=== PATIENT | male | born 1960 | race Caucasian/White ===

== ENCOUNTER 2021-06-30 00:03 | Day surgery (SDC) | payer BC, SELFPAY ==
[2021-06-24 12:44] VITALS: BMI 33.0
[2021-06-30 06:22] VITALS: BP 150/82; PULSE 60; RESP 18; TEMP 36.2; O2SAT 99
[2021-06-30] MEDS: LACTATED RINGERS 1,000 ML 150 ML IV CONT (06:32)
--- NOTE | 2021-06-30 07:19 | PM.HPGS ---
History of Present Illness History of Present Illness Consent: Risks, benefits, and alternatives have been discussed and questions answered. Patient agrees to proceed with procedure. Chief complaint: neoplasm screening Narrative: Cade Truong is a 61 year old male here for screening colonoscopy, last one 10 years ago. Review of Systems Constitutional: Constitutional: Denies headache(s) and Denies weakness Eyes: Eyes: Denies blurry vision ENT: Reports Normal hearing present, Denies headache(s) and Denies neck pain Cardiovascular: Cardiovascular: Denies chest pain and Denies dyspnea Respiratory: Respiratory: Denies dyspnea Gastrointestinal: Gastrointestinal: Reports no additional gastrointestinal complaints Genitourinary: Genitourinary: Denies dysuria Musculoskeletal: Musculoskeletal: Denies neck pain Integumentary/Breasts: Skin/Breast: Denies dry skin Neurologic: Reports Normal hearing present, Denies headache(s) and Denies weakness Psychiatric: Psychiatric: Denies anxiety Endocrine: Endocrine: Denies change in body appearance Hematologic/Lymphatic: Hematologic/Lymphatic: Denies easy bleeding Allergic/Immunologic: Allergic/Immunologic: Denies urticaria PMFSH Past Medical History Medical History (Updated 06/30/21 @ 07:20 by Donnie Hernandez MD) BMI 31.0-31.9,adult BMI 34.0-34.9,adult Colon cancer screening Surgical History Surgical History H/O shoulder surgery Family History Family History Mother Hypertension Cerebrovascular accident Family history of malignant neoplasm Family history of diabetes mellitus in first degree relative Family history of coronary artery disease Father Malignant neoplasm of prostate Social History Social History Smoking status: Current some day smoker Tobacco type: cigars Additional smoking assessment comments: cigar when golfing Alcohol intake: current Alcohol use details: once per month Substance use: never Substance use type: does not use Living arrangements: with family 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 Gender identity (if verbalized by the patient): Male Spiritual care concerns: No Meds Home Medications and Allergies Home Medications Medication Instructions Recorded Confirmed Type tadalafil 20 mg tablet 20 mg PO DAILY PRN #21 tablet 04/16/21 06/24/21 Rx aspirin [Adult Aspirin] 81 mg PO DAILY 06/24/21 06/30/21 History atorvastatin 80 mg PO DAILY 06/24/21 06/30/21 History pramipexole 0.25 mg PO TID 06/24/21 06/30/21 History Allergies Allergy/AdvReac Type Severity Reaction Status Date / Time No Known Drug Allergies Allergy Mild none Verified 06/30/21 06:21 Vital Signs Vital Signs - 24 hr 06/30/21 06:22 Temperature 97.1 F L Pulse Rate 60 Respiratory Rate 18 Blood Pressure 150/82 H Pulse Oximetry 99 Exam Const: General: comfortable and no acute distress HENMT: General nose exam: Normal nares present Eyes: General: appearance normal, both eyes and all related structures Neck: Neck: no JVD Resp: Auscultation: clear to auscultation bilaterally Cardio: Rate: regular rate Rhythm: regular rhythm GI: Inspection: non-distended GI Palp: Yes Soft to palpation Skin: General skin exam: normal color Neuro: General: gait normal Speech: normal speech Extrem: General: normal to inspection Psych: Mental Status: mental status grossly normal Assessment and Plan Assessment and plan (1) Colon cancer screening: Code(s): Z12.11 - Encounter for screening for malignant neoplasm of colon Status: Acute Assessment and Plan: colonoscopy
--- NOTE | 2021-06-30 07:24 | WPDANESEPPF ---
Anes - Initial Pre Proc Eval Procedure: Operation Date: 06/30/21 07:30 Proposed Procedures p Screening Colonoscopy - Donnie Hernandez MD Date/Time: 06/30/21 07:24 Surgeon: Donnie Hernandez MD Pre Op Diagnosis: neoplasm screening Patient Data Age: 61 Gender: M Height: 1.78 m Weight: 99.8 kg Last Vital Signs Temp 97.1 F L 06/30/21 06:22 Pulse 60 06/30/21 06:22 Resp 18 06/30/21 06:22 BP 150/82 H 06/30/21 06:22 Pulse Ox 99 06/30/21 06:22 Allergies Allergy/AdvReac Type Severity Reaction Status Date / Time No Known Drug Allergies Allergy Mild none Verified 06/30/21 06:21 Home Medications Medication Instructions Recorded Confirmed Type tadalafil 20 mg tablet 20 mg PO DAILY PRN #21 tablet 04/16/21 06/24/21 Rx aspirin [Adult Aspirin] 81 mg PO DAILY 06/24/21 06/30/21 History atorvastatin 80 mg PO DAILY 06/24/21 06/30/21 History pramipexole 0.25 mg PO TID 06/24/21 06/30/21 History Patient hx anesthesia problems: none Family hx anesthesia problems: none Results Review: All pre-operative results and documents have been reviewed as part of the pre-operative evaluation. [facility] Past Medical History Medical History (Updated 06/30/21 @ 07:20 by Donnie Hernandez MD) BMI 31.0-31.9,adult BMI 34.0-34.9,adult Colon cancer screening Surgical History Surgical History H/O shoulder surgery Family History Family History Mother Hypertension Cerebrovascular accident Family history of malignant neoplasm Family history of diabetes mellitus in first degree relative Family history of coronary artery disease Father Malignant neoplasm of prostate Social History Social History Smoking status: Current some day smoker Tobacco type: cigars Additional smoking assessment comments: cigar when golfing Alcohol intake: current Alcohol use details: once per month Substance use: never Substance use type: does not use Living arrangements: with family 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 Gender identity (if verbalized by the patient): Male Spiritual care concerns: No Anes - Eval Final PreProcedure Day of Procedure 06/30/21 07:24 Patient weight: obese Heart: regular rate and rhythm Lungs: clear to auscultation Airway: Mallampati scale (states difficult intubation; brought letter from [facility]) class II Neurological: alert and oriented Last oral intake: >/= 8 hours ASA classification: III Emergent: no Anesthetic plan: proceed Anesthesia type and monitoring: general GIVS and standard monitoring Results Review: All pre-operative results and documents have been reviewed as part of the pre-operative evaluation. Informed Consent: The patient's anesthetic plan and its attendant risks and benefits were discussed with the patient/family/POA. Questions were solicited and answers provided to the satisfaction of the patient/family/POA.
[2021-06-30 07:39] VITALS: BP 123/77; PULSE 60; RESP 18; O2SAT 97
[2021-06-30 07:49] VITALS: BP 119/80; PULSE 56; RESP 20; O2SAT 99
[2021-06-30 07:59] VITALS: BP 129/86; PULSE 58; RESP 20; O2SAT 99
== END 2021-06-30 08:12 | disposition home or self-care (01) ==
PROVIDERS: PCP Family Medicine; Visit Provider Internal Medicine Gastroenterology
PROC: 0DJD8ZZ Inspection of Lower Intestinal Tract, Via Natural or Artificial Opening Endoscopic (ICD-10-PCS; CPT 45378; principal; 2021-06-30 07:30)
DX: Z12.11 Encounter for screening for malignant neoplasm of colon (principal); K57.30 Diverticulosis of large intestine without perforation or abscess without bleeding; Z79.82 Long term (current) use of aspirin; F17.290 Nicotine dependence, other tobacco product, uncomplicated; E66.9 Obesity, unspecified; Z68.31 Body mass index [BMI] 31.0-31.9, adult
CPT/HCPCS: 45378; J2704; J7120

== ENCOUNTER 2023-01-05 08:23 | Outpatient (CLI) | payer BC, SELFPAY ==
--- NOTE | ~2023-01-05 | XR_ITS ---
Clinical Indication: Shortness of breath PA and lateral views of the chest: Comparison: None Findings: Calcified left lung granuloma noted. The lungs are otherwise clear, without evidence of foc al consolidation or pleural effusion. Cardiomediastinal silhouette is within normal limits. Bones an d soft tissues are unremarkable. Impression: No significant abnormality. Reviewed, dictated and finalized at location . Impression: No significant abnormality.
--- NOTE | 2023-01-05 08:27 | ECHO_ITS ---
Patient Info Name: Cade Truong Age: 62 years : 1960 Gender: Male Ht: 70 in Wt: 235 lbs BSA: 2.33 m2 HR: 56 bpm BP: 150 / 89 mmHg Heart Rhythm: Sinus Rhythm Technical Quality: Fair Exam Date: 01/05/2023 8:39 AM Exam Location: [facility] Pulmonary Patient Status: Outpatient Admit Date: 01/05/2023 Staff Ordering Physician: Aime Ricci NP Supervisor [employer]: Abby Krueger RDCS Attending Provider: Aime Ricci NP Referring Physician: Radhames BABIN; Exam Type: CA echo doppler color flow Study Info Indications Z82.49 - Family history of ischemic heart disease and other diseases of the circulatory system Complete two-dimensional, color flow and Doppler transthoracic echocardiogram is performed. Summary 1. Complete two-dimensional, color flow and Doppler transthoracic echocardiogram is performed. 2. Left ventricular chamber dimension is normal. 3. Left ventricular systolic function is normal, estimated at 60-65%. 4. There is mild concentric increased left ventricular wall thickness. 5. The left ventricular diastolic function is grade I diastolic dysfunction. 6. E/e' 9 is minimally elevated. 7. Left atrial chamber dimension is mildly enlarged. 8. No pulmonary hypertension, estimated pulmonary arterial systolic pressure is 21 mmHg. Left Ventricle E/e' 9 is minimally elevated. Left ventricular chamber dimension is normal. Left ventricular systolic function is normal, estimated at 60-65%. There is mild concentric increased left ventricular wall thickness. The left ventricular diastolic function is grade I diastolic dysfunction. Right Ventricle Right ventricular systolic function is normal and with normal TAPSE 2.1 cm. Right ventricular chamber dimension is normal. Left Atria Left atrial chamber dimension is mildly enlarged. Right Atria Right atrial chamber dimension is normal. Aortic Valve The aortic valve is trileaflet. There is no aortic valve stenosis. There is no aortic valve regurgitation. Pulmonic Valve There is no pulmonic regurgitation. Mitral Valve There is no mitral valve stenosis. There is no mitral valve regurgitation. Tricuspid Valve There is no tricuspid valve regurgitation. No pulmonary hypertension, estimated pulmonary arterial systolic pressure is 21 mmHg. Pericardium/Pleural There is no pericardial effusion. Inferior Vena Cava Normal inferior vena cava with >50% collapse upon inspiration consistent with normal right atrial pressure, 5 mmHg. Aorta The aortic root size at the sinus of Valsalva is normal. Left Ventricular Outflow Tract Name Value Normal LVOT 2D LVOT Diameter 2.0 cm LVOT Doppler LVOT Peak Gradient 5 mmHg LVOT Mean Gradient 2 mmHg LVOT VTI 23 cm LVOT VTI/AV VTI Ratio 0.8 LVOT Stroke Volume 68 ml LVOT CO 3.6 l/min LVOT CI 1.5 l/min/m2 Pulmonic Valve Name Value Normal
== END 2023-01-05 08:24 | disposition home or self-care (01) ==
PROVIDERS: PCP Family Medicine; Visit Provider Nurse Practitioner Family
DX: R06.02 Shortness of breath (principal); Z82.49 Family history of ischemic heart disease and other diseases of the circulatory system; Z72.0 Tobacco use
CPT/HCPCS: 71046; 93306

== ENCOUNTER 2024-03-19 14:17 | Outpatient (CLI) | payer OTHER, SELFPAY ==
--- NOTE | ~2024-03-19 | XR_ITS ---
XR hand BI arthritis min 3V Ordering provider: Chip Ricci NP History: . NO INJURY BILATERAL HAND PAIN . Comparison: None. FINDINGS: RIGHT HAND: --BONES: No acute fracture or dislocation. No osteopenia. --JOINT SPACES: Narrowing in the proximal and distal interphalangeal joints. Marginal osteophytes are seen in some of the joints. Cystic area seen in the lunate bone. --SOFT TISSUES: Unremarkable. No soft tissue swelling or nodules. LEFT HAND: --BONES: No acute fracture or dislocation. --JOINT SPACES: narrowing of the proximal and distal interphalangeal joints. --SOFT TISSUES: Unremarkable. No soft tissue swelling or nodules. IMPRESSION: 1. No acute osseous abnormality bilateral hands. 2. Polyarticular osteoarthritic changes. Reviewed, dictated and finalized at location A. [employer]
== END 2024-03-19 14:18 | disposition home or self-care (01) ==
PROVIDERS: PCP Family Medicine
DX: M19.042 Primary osteoarthritis, left hand (principal); M19.041 Primary osteoarthritis, right hand; M24.849 Other specific joint derangements of unspecified hand, not elsewhere classified
CPT/HCPCS: 73130